=== PATIENT | male | born 1960 | race Caucasian/White ===

== ENCOUNTER 2016-12-08 15:31 | Day surgery (SDC) | payer BC ==
[~2016-12-08] VITALS: Ht 185.4 cm; Wt 91.9 kg
[2016-12-08] MEDS ORDERED: PROPOFOL 40 ML ONE (16:02)
[2016-12-08 16:08] VITALS: Ht 185.4 cm; Wt 91.9 kg
[2016-12-08] MEDS ORDERED: FER325 PO (16:16)
[2016-12-08] MEDS ORDERED: HYDR12.58 PO (16:16)
[2016-12-08] MEDS ORDERED: LISI20TA11 PO (16:16)
[2016-12-08] MEDS ORDERED: SIMV40TA2 PO (16:16)
[2016-12-08 16:24] VITALS: BP 130/96; PULSE 77; RESP 14
[2016-12-08] MEDS ORDERED: PROPOFOL 20 ML ONE ×3 (17:04)
[2016-12-08 17:27] VITALS: BP 123/77; RESP 20
--- NOTE | 2016-12-09 09:33 | GILP ---
DATE OF PROCEDURE: 12/08/2016 PROCEDURE PERFORMED: 1. Esophagogastroduodenoscopy and biopsy. 2. Colonoscopy with biopsy and polypectomy. SURGEON: Lisset Prasad MD PREOPERATIVE DIAGNOSES: 1. Abdominal pain. 2. Iron-deficiency anemia. POSTOP DIAGNOSIS: 1. Hiatal hernia. 2. Reflux esophagitis. 3. Gastroesophageal erosions. 4. Gastric mucosal biopsies were taken for H. pylori test. 5. Small-bowel biopsies were taken to rule out celiac disease. 6. Colonoscopy all the way to the cecum. 7. The patient had 2 sigmoid colon polyps and 1 of them was removed using the biopsy forceps and the other 1 with the snare and electrocautery. 8. Internal hemorrhoids. INDICATION: The patient is a 56-year-old male patient, who had iron-deficiency anemia. He never had a screening colonoscopy. He also had upper abdominal pain not responding to therapy. The patient was scheduled for endoscopy and colonoscopy for further evaluation. The procedures and possible complications were well explained to the patient. He understood and consented to the procedure. DESCRIPTION OF PROCEDURE: Under the influence of anesthesia, the gastroscope was carefully introduced into the esophagus and under direct vision it was advanced to the stomach into the pylorus and to the duodenal bulb and descending duodenum. Findings: Esophagus: The patient had a hiatal hernia anemia with reflux esophagitis and erosions. Stomach: The patient had gastritis with erosions. Gastric mucosal biopsies were taken for H pylori test. The duodenum was normal. Small bowel biopsies were taken to rule out celiac disease. The colonoscope was carefully introduced into the rectum. Under direct vision it was advanced all the way to the cecum. Findings: The patient had 2 sigmoid colon polyps, and 1 of them was removed using the biopsy forceps and the other 1 with the snare and electrocautery. The patient was noted to have internal hemorrhoids. He tolerated the procedures very well. There was no complication from the procedures. At the end of procedures he was awake with stable vital signs and he was discharged juliana in the care of his family. IMPRESSION: Please see postop diagnoses. PLAN: 1. Nexium 24 hours p.o. q.a.m. 2. Await histopathology reports. 3. Next screening colonoscopy in 5 years. Dictated By: MD KATHARINE Mijares/[email or web address] /Document#: [id number]
== END 2016-12-08 19:23 | disposition home or self-care (01) ==
LOC: GIL 15:31
PROVIDERS: ATTEND Internal Medicine Gastroenterology
DX: K44.9 Diaphragmatic hernia without obstruction or gangrene (principal); K21.0 Gastro-esophageal reflux disease with esophagitis; D12.5 Benign neoplasm of sigmoid colon; K64.8 Other hemorrhoids; I10 Essential (primary) hypertension; E78.5 Hyperlipidemia, unspecified
CPT/HCPCS: 43239; 45385; 87081; 88305; Z7610